=== PATIENT | female | born 1945 | race Caucasian/White ===

== ENCOUNTER 2016-11-26 06:16 | Day surgery (SDC) | payer MEDICARE, OTHER ==
[2016-11-26] MEDS ORDERED: Dextrose 5%-Lactated Ringers 1,000 ML IV SCH (07:00)
[2016-11-26] MEDS ORDERED: Propofol 200 MG/20 ML SDV ONE (07:36)
[2016-11-26] MEDS ORDERED: fentaNYL 100 MCG/2 ML SDV ONE (07:36)
[2016-11-26] MEDS ORDERED: Midazolam 1 MG/ML 2 ML SDV ONE (07:36)
[2016-11-26 10:07] VITALS: BP 144/71
--- NOTE | 2016-11-26 15:16 | PROC ---
DATE OF PROCEDURE: 11/26/2016 PREOPERATIVE DIAGNOSIS: History of colon cancer, change in bowel habits. POSTOPERATIVE DIAGNOSIS: A small benign-appearing polyp in cecum, biopsy report pending. INDICATIONS: Lorelei is a 71-year-old female, who has a history of colon resection, has had recent change in bowel habits, and she is concerned. The risks and benefits were explained. PROCEDURE IN DETAIL: The patient was taken to the OR, and anesthesia was given by nurse school transportation supervisor. During procedure, we used 1 mg of Versed, 150 mg of propofol, and 100 mcg of fentanyl. The Olympus 180 AL scope was used. With a gloved finger, the rectum was examined, the tube was placed into the rectum, and advanced under direct vision. We did get to the cecum using the turbo on the scope as well as external pressure. At the cecum, we noted a small benign-appearing polyp, and this was biopsied. We then slowly retracted the tube throughout the entire colon and found no abnormality, except for infrequent diverticula with no evidence of infection. The sigmoid and rectum were unremarkable. The tube was removed. The patient tolerated the procedure well. Blake Hernandez MD /[id number]
== END 2016-11-26 10:30 | disposition home or self-care (01) ==
LOC: JP.SDS 06:16
PROVIDERS: ATTEND Internal Medicine
DX: D12.0 Benign neoplasm of cecum (principal); Z85.038 Personal history of other malignant neoplasm of large intestine; Z79.82 Long term (current) use of aspirin; Z79.899 Other long term (current) drug therapy; Z88.6 Allergy status to analgesic agent; I10 Essential (primary) hypertension
CPT/HCPCS: 45380; J2250; J2704; J3010; J7042; 88305

== ENCOUNTER 2019-12-28 07:24 | Day surgery (SDC) | payer MEDICARE, OTHER ==
[~2019-12-28 07:24] MED LIST: Propofol 200 MG/20 ML SDV ONE; fentaNYL 100 MCG/2 ML SDV ONE
[2019-12-28] MEDS ORDERED: Sodium Chloride 0.9% 1,000 ML IV SCH (08:00)
[2019-12-28] MEDS ORDERED: Propofol 200 MG/20 ML SDV ONE ×2 (09:18→09:41)
[2019-12-28 12:02] VITALS: BP 124/69; PULSE 59
--- NOTE | 2019-12-28 13:17 | PROC ---
DATE OF PROCEDURE: SURGEON: Blake Hernandez MD INDICATION: Lorelei is a 74-year-old female, comes in for a colonoscopy. She has had polyps in the past and resection. The risks and benefits were explained and the patient was taken to the OR. PROCEDURE IN DETAIL: Anesthesia was given by nurse oxyacetylene burner. During the procedure, we used 100 mcg of fentanyl and 400 mg of propofol. The H80AL scope was used, was placed into the rectum, after examination of rectum with a gloved finger and advanced under direct vision. We did get to 70 cm, did multiple biopsies of several lesions, and then did also biopsies at 40 cm. There was one area of concern that looked like external pressure, looked like a mass that was not concluded to be anything as it resolved. The tube was slowly retracted and removed. The patient tolerated the procedure well. PREOPERATIVE DIAGNOSIS: History of colonic polyps and resection. POSTOPERATIVE DIAGNOSIS: Multiple polyps, biopsied, will be sent to Pathology. Blake Hernandez MD /[id number]
== END 2019-12-28 12:26 | disposition home or self-care (01) ==
LOC: JP.SDS 07:24
PROVIDERS: ATTEND Internal Medicine
DX: D12.6 Benign neoplasm of colon, unspecified (principal); J45.909 Unspecified asthma, uncomplicated; I10 Essential (primary) hypertension; Z86.010 Personal history of colon polyps; Z98.890 Other specified postprocedural states; Z85.038 Personal history of other malignant neoplasm of large intestine
CPT/HCPCS: 45380; 88305; J2704; J3010; J7030